=== PATIENT | female | born 1935 | race African-American/Black ===

== ENCOUNTER → 2016-09-22 | Outpatient (CLI) | payer MEDICARE ==
[~2016-09-22] MED LIST: AMLO10 PO; AMLO10TA2 PO; ASPI81 PO; ASPI81CH CHEW; COLA100C PO; GEMF600T PO; GLIP-146 PO; LISI-515 PO; LISI20TA3 PO; OMEP20TA PO; PRAV40TA PO; PRAV40TA2 PO
[2016-09-22 09:33] LABS: AUTOMATED NEUTROPHIL # 3.8 TH/MM3 (1.8-7.7); BASOPHIL # 0.1 TH/MM3 (0-0.2); EOSINOPHIL # 1.1 TH/MM3 (0-0.4); EOSINOPHIL % 15.2 % (0.0-4.0); HEMATOCRIT 28.4 % (35.0-46.0); HEMO FLAGS DIFF FINAL; LYMPH % 26.8 % (9.0-44.0); MEAN CELL VOLUME 79.2 FL (80.0-100.0); MEAN CORPUSCULAR HEMOGLOBIN 25.6 PG (27.0-34.0); MEAN CORPUSCULAR HGB CONC 32.3 % (32.0-36.0); MONO % 6.4 % (0.0-8.0); NEUT % 50.6 % (16.0-70.0); PLATELET COUNT 195 TH/MM3 (150-450); RED BLOOD COUNT 3.59 MIL/MM3 (4.00-5.30); WHITE BLOOD COUNT 7.5 TH/MM3 (4.0-11.0)
[2016-09-22 09:36] LABS: BLOOD, URINE NEG (NEG); GLUCOSE,URINE NEG (NEG); HYALINE CAST, URINE 1 /lpf (RARE); KETONE, URINE NEG (NEG); MUCUS URINE FEW /lpf (OCC); NITRITE,URINE NEG (NEG); URINE COLOR LIGHT-YELLOW (YELLW/STRAW)
[2016-09-22 09:38] LABS: SQUAMOUS EPITHELIAL CELL URINE <1 /hpf (0-5)
[2016-09-22 10:04] LABS: ALKALINE PHOSPHATASE 70 U/L (45-117); ALT (GPT) 15 U/L (10-53); ANION GAP 7 MEQ/L (5-15); AST (GOT) 14 U/L (15-37); BICARBONATE 25.9 MEQ/L (21.0-32.0); BLOOD UREA NITROGEN 31 MG/DL (7-18); CHLORIDE 106 MEQ/L (98-107); GLOMERULAR FILTRATION RATE 36 ML/MIN (>89); GLUCOSE,FASTING 99 MG/DL (74-99); HDL CHOLESTEROL 71.6 MG/DL (40.0-60.0); LDL CHOLESTEROL 147 MG/DL (0-99); POTASSIUM 4.5 MEQ/L (3.5-5.1); SODIUM (NA) 139 MEQ/L (136-145); TOTAL BILIRUBIN ADULT 0.3 MG/DL (0.2-1.0)
[2016-09-22 10:06] LABS: CREATININE RANDOM URINE 68 MG/DL (27-300)
[2016-09-22 10:16] LABS: MICRO ALBUMIN RANDOM URINE RAW LESS THAN 5.0 MG/L (0.0-30.0); MICROALBUMIN/CREAT RATIO RAND 7 MG/G CRE (0-30)
[2016-09-22 14:26] LABS: HEMOGLOBIN A1b 0.5 %; HEMOGLOBIN F 0.9 %; HEMOGLOBIN LA1C 1.5 %; HEMOGLOBIN P3 3.7 %
== END ==
LOC: CLAB 09:08
PROVIDERS: ATTEND General Practice
DX: E11.9 Type 2 diabetes mellitus without complications (principal); E78.00 Pure hypercholesterolemia, unspecified
CPT/HCPCS: 36415; 80053; 80061; 81001; 82043; 83036; 85025

== ENCOUNTER 2016-10-19 18:18 | Emergency (ER) | payer MEDICARE, MEDICAID ==
[~2016-10-19 18:18] MED LIST changes: -AMLO10TA2 PO; -ASPI81CH CHEW; -COLA100C PO; -LISI-515 PO; -LISI20TA3 PO; -PRAV40TA2 PO
[2016-10-19 18:20] VITALS: BP 182/83; PULSE 101; RESP 14; TEMP 99.3; O2SAT 98
[2016-10-19] MEDS ORDERED: AMLO10TA2 PO (19:25)
[2016-10-19] MEDS ORDERED: ASPI81CH CHEW (19:25)
[2016-10-19] MEDS ORDERED: PRAV40TA2 PO (19:25)
[2016-10-19] MEDS ORDERED: LISI-515 PO (19:25)
[2016-10-19] MEDS ORDERED: LISI20TA3 PO (19:25)
[2016-10-19] MEDS ORDERED: SOD PHOSPHATE/SOD BIPHOSPHATE (ADULT) ENEMA 133ML RECTAL ONE (19:45)
--- NOTE | 2016-10-19 19:47 | PD ---
HPI Chief Complaint: GI Complaint Time Seen by Provider: 19:30 Travel History International Travel<30 days: No Contact w/Intl Traveler<30days: No Traveled to known affect area: No History of Present Illness HPI This is a 81-year-old female presents for evaluation of constipation. She reports that she was started on Lortab 5 days ago for pain associated with an ingrown toenail. She reports that for the past 2 days she's been constipated. Her last bowel movement was October 17. She reports rectal pain associated with attempting to pass a bowel movement. She took some Colace yesterday which did not seem to help. She denies abdominal pain, nausea or vomiting, fevers or chills, dysuria. She has no other complaints. PFSH Past Medical History Arthritis: Yes (LEFT KNEE) Blood Disorders: No Cancer: No Cardiac Catheterization: Yes (2009) Cardiovascular Problems: Yes High Cholesterol: Yes Chemotherapy: No Diabetes: Yes Diminished Hearing: No Endocrine: Yes GERD: No Genitourinary: No Hiatal Hernia: No Hypertension: Yes Immune Disorder: No Musculoskeletal: No Neurologic: No Psychiatric: No Reproductive: No Respiratory: No Radiation Therapy: No Thyroid Disease: No Ulcer: No Menopausal: Yes : 8 Para: 8 Past Surgical History Surgical History: No Previous Surgery Cardiac Surgery: Yes (stents) Section: Yes (X1) Coronary Stent: Yes (2009 X 3 ) Other Surgery: Yes (ingrown toenail) Social History Alcohol Use: No Tobacco Use: No Substance Use: No Allergies-Medications (Allergen,Severity, Reaction): Coded Allergies: Darvon (Verified Allergy, Severe, UNKNOWN, 10/19/16) Reported Meds & Prescriptions Reported Meds & Active Scripts Active Colace (Docusate Sodium) 100 Mg Capsule 1 Tab PO BID 10 Days Reported Aspirin 81 Mg Chew 81 Mg CHEW DAILY Amlodipine (Amlodipine Besylate) 10 Mg Tab 10 Mg PO DAILY Pravastatin 40 Mg Tab 40 Mg PO DAILY Lisinopril-Hctz 20-25 Mg Tab 1 Tab PO DAILY Review of Systems Except as stated in HPI: all other systems reviewed are Neg Physical Exam Narrative GENERAL: Well-developed well-nourished female in no acute distress SKIN: Warm and dry. HEAD: Atraumatic. Normocephalic. EYES: Pupils equal and round. No scleral icterus. No injection or drainage. ENT: No nasal bleeding or discharge. Mucous membranes pink and moist. NECK: Trachea midline. No JVD. CARDIOVASCULAR: Regular rate and rhythm. No murmur appreciated. RESPIRATORY: No accessory muscle use. Clear to auscultation. Breath sounds equal bilaterally. GASTROINTESTINAL: Abdomen soft, non-tender, nondistended. Hepatic and splenic margins not palpable. Normoactive bowel sounds in all 4 quadrants. Rectal examination: There is a large fecal impaction noted in the rectal vault. There is no evidence of internal or external hemorrhoid, no anal fissure. MUSCULOSKELETAL: No obvious deformities. No clubbing. No cyanosis. No edema. NEUROLOGICAL: Awake and alert. No obvious cranial nerve deficits. Motor grossly within normal limits. Normal speech. Data Data Last Documented VS Vital Signs Date Time Temp Pulse Resp B/P Pulse Ox O2 Delivery O2 Flow Rate FiO2 10/19/16 18:20 99.3 101 14 182/83 98 Orders Fleets Enema (Adult) (Fleets Enema (Adul (10/19/16 19:45) MDM Medical Decision Making Medical Screen Exam Complete: Yes Emergency Medical Condition: Yes Medical Record Reviewed: Yes Differential Diagnosis Opioid-induced constipation, fecal impaction, bowel obstruction, ileus Narrative Course This is a 81-year-old female who was started on Lortab 5 days ago. She presents with constipation for 2 days. On examination she has a large fecal impaction. Her abdomen is soft and nontender and she has normoactive bowel sounds. I don't suspect bowel obstruction. I suspect opioid-induced constipation, fecal impaction. After verbal consent was obtained I attempted manual disimpaction of her large fecal impaction and was able to remove a significant amount of stool. She continues to have rectal discomfort and therefore a fleets enema will be initiated. Immediately after the enema the patient had a large bowel movement. Her symptoms have resolved and she feels significantly improved. The patient agrees that she will discontinue the Lortab. She'll be discharged with a short course of Colace. Diagnosis Primary Impression: Constipation Qualified Code: K59.00 - Constipation, unspecified constipation type Additional Impression: Fecal impaction in rectum Additional Instructions: Stay well hydrated. High-fiber diet. Colace. Discontinue Lortab. Follow-up with primary care physician as needed. Return for any acutely new or worsening symptoms. Med/Other Pt SpecificInfo: Prescription(s) given Scripts Docusate Sodium (Colace)100 Mg Capsule1 Tab PO BID 10 Days Prov:Aisha Mclaughlin MD 10/19/16 Disposition: 01 DISCHARGE HOME Condition: Stable Charanjit Gordon Oct 19, 2016 19:47
[2016-10-19] MEDS ORDERED: COLA100C PO (20:10)
== END 2016-10-19 20:19 | disposition home or self-care (01) ==
LOC: NEPE 18:18
DX: K59.00 Constipation, unspecified (principal); K56.41 Fecal impaction; L60.0 Ingrowing nail; M17.12 Unilateral primary osteoarthritis, left knee; E78.00 Pure hypercholesterolemia, unspecified; E11.9 Type 2 diabetes mellitus without complications; I10 Essential (primary) hypertension; Z79.82 Long term (current) use of aspirin; Z79.899 Other long term (current) drug therapy
CPT/HCPCS: 99283

== ENCOUNTER 2017-01-30 20:19 | Emergency (ER) | payer MEDICARE, MEDICAID ==
[~2017-01-30 20:19] MED LIST changes: -AMLO10 PO; +AMLO10TA2 PO; -ASPI81 PO; +ASPI81CH CHEW; +COLA100C PO; -GEMF600T PO; -GLIP-146 PO; +LISI20TA3 PO; -OMEP20TA PO; -PRAV40TA PO; +PRAV40TA2 PO
[2017-01-30 20:20] VITALS: BP 216/98; PULSE 102; RESP 16; TEMP 98.6; O2SAT 98
[2017-01-30 22:04] LABS: BASOPHIL % 0.6 % (0.0-2.0); EOSINOPHIL % 11.4 % (0.0-4.0); HEMATOCRIT 29.7 % (35.0-46.0); HEMO FLAGS DIFF FINAL; LYMPH % 21.6 % (9.0-44.0); LYMPHOCYTE # 1.8 TH/MM3 (1.0-4.8); MEAN CELL VOLUME 79.9 FL (80.0-100.0); MEAN CORPUSCULAR HEMOGLOBIN 26.5 PG (27.0-34.0); MEAN CORPUSCULAR HGB CONC 33.1 % (32.0-36.0); MONO % 7.4 % (0.0-8.0); PLATELET COUNT 192 TH/MM3 (150-450); RED BLOOD COUNT 3.71 MIL/MM3 (4.00-5.30); WHITE BLOOD COUNT 8.5 TH/MM3 (4.0-11.0)
[2017-01-30 22:06] LABS: BLOOD, URINE NEG (NEG); GLUCOSE,URINE NEG (NEG); KETONE, URINE NEG (NEG); NITRITE,URINE NEG (NEG); URINE COLOR COLORLESS (YELLW/STRAW)
[2017-01-30 22:07] LABS: COMMENT (UR) CULT NOT INDICATED; CULTURE IF INDICATED CULT NOT INDICATED
[2017-01-30 22:16] LABS: ALT (GPT) 12 U/L (10-53); ANION GAP 11 MEQ/L (5-15); AST (GOT) 12 U/L (15-37); BICARBONATE 22.4 MEQ/L (21.0-32.0); BLOOD UREA NITROGEN 19 MG/DL (7-18); CHLORIDE 106 MEQ/L (98-107); GLOMERULAR FILTRATION RATE 38 ML/MIN (>89); SODIUM (NA) 139 MEQ/L (136-145)
[2017-01-30 22:19] LABS: ALKALINE PHOSPHATASE 70 U/L (45-117); TOTAL BILIRUBIN ADULT 0.3 MG/DL (0.2-1.0)
[2017-01-30 22:34] VITALS: BP 203/94; PULSE 84; RESP 16; TEMP 97.9; O2SAT 99
[2017-01-31] MEDS ORDERED: LISINOPRIL 20 MG TAB PO ONE (00:15)
[2017-01-31] MEDS ORDERED: DICYCLOMINE HCL 10 MG CAP PO ONE (00:15)
[2017-01-31] MEDS ORDERED: HYDROCHLOROTHIAZIDE 25 MG TAB PO ONE (00:15)
[2017-01-31 00:20] VITALS: BP 174/82; PULSE 84; RESP 18; O2SAT 100
[2017-01-31] MEDS ORDERED: DICY10 PO (00:28)
--- NOTE | 2017-01-31 00:29 | PD ---
HPI . Diffuse abdominal pain Chief Complaint: Abdominal Pain Time Seen by Provider: 00:14 Travel History International Travel<30 days: No Contact w/Intl Traveler<30days: No Traveled to known affect area: No History of Present Illness HPI This patient presents with the chief complaint of diffuse abdominal pain associated with loose stools. Onset was 3 days ago. Her had just . She states that they buried him 2 days ago. In addition to the abdominal pain and diarrhea, she states that she has a lot of gas. Symptoms are exacerbated by eating. He she denies any associated nausea, vomiting or fever. She denies any associated urinary tract symptoms. Her pain is crampy and is rated 8/10. The patient reports that she did not take her antihypertensives today because she was coming here. PFSH Past Medical History Arthritis: Yes (LEFT KNEE) Blood Disorders: No Cancer: No Cardiac Catheterization: Yes (2009) Cardiovascular Problems: Yes High Cholesterol: Yes Chemotherapy: No Diabetes: Yes Patient Takes Glucophage: No Diminished Hearing: No Endocrine: Yes GERD: No Genitourinary: No Hiatal Hernia: No Hypertension: Yes Immune Disorder: No Musculoskeletal: No Neurologic: No Psychiatric: No Reproductive: No Respiratory: No Radiation Therapy: No Thyroid Disease: No Ulcer: No Tetanus Vaccination: Unknown Influenza Vaccination: No ?: Not Menopausal: Yes : 8 Para: 8 Past Surgical History Cardiac Surgery: Yes (stents) Section: Yes (X1) Coronary Stent: Yes (X 3 ) Other Surgery: Yes (ingrown toenail) Social History Alcohol Use: No Tobacco Use: No Substance Use: No Allergies-Medications (Allergen,Severity, Reaction): Coded Allergies: propoxyphene (Unverified Allergy, Severe, UNKNOWN, 01/30/17) Reported Meds & Prescriptions Reported Meds & Active Scripts Active Reported Aspirin 81 Mg Chew 81 Mg CHEW DAILY Amlodipine (Amlodipine Besylate) 10 Mg Tab 10 Mg PO DAILY Pravastatin 40 Mg Tab 40 Mg PO DAILY Lisinopril-Hctz 20-25 Mg Tab 1 Tab PO DAILY Review of Systems Except as stated in HPI: all other systems reviewed are Neg General / Constitutional: No: Fever, Chills Cardiovascular: No: Chest Pain or Discomfort Respiratory: No: Shortness of Breath Gastrointestinal: Positive: Diarrhea, Abdominal Pain, No: Nausea, Vomiting Genitourinary: No: Urgency, Frequency, Dysuria Physical Exam Narrative GENERAL: This patient looks comfortable. SKIN: warm/dry. HEAD: Normocephalic. Atraumatic. EYES: Pupils equal and round. No scleral icterus. No injection or drainage. ENT: No nasal bleeding or discharge. Mucous membranes pink and moist. NECK: Trachea midline. Full range of motion without pain.. CARDIOVASCULAR: Regular rate and rhythm. Heart sounds normal. RESPIRATORY: No accessory muscle use. Clear to auscultation. Breath sounds equal bilaterally. GASTROINTESTINAL: Abdomen soft. Nontender. Bowel sounds present. Nondistended. MUSCULOSKELETAL: No obvious deformities. NEUROLOGICAL: Awake and alert. No obvious cranial nerve deficits. Motor grossly within normal limits. Normal speech. PSYCHIATRIC: Appropriate mood and affect; insight and judgment normal. Data Data Last Documented VS Vital Signs Date Time Temp Pulse Resp B/P (MAP) Pulse Ox O2 Delivery O2 Flow Rate FiO2 01/31/17 00:20 84 18 174/82 (112) 100 Room Air 01/30/17 22:34 97.9 Orders Orders Complete Blood Count With Diff (01/30/17 20:59) Comprehensive Metabolic Panel (01/30/17 20:59) Urinalysis - C+S If Indicated (01/30/17 20:59) Lipase (01/30/17 20:59) Dicyclomine (Bentyl) (01/31/17 00:15) Hydrochlorothiazide (Hydrodiuril) (01/31/17 00:15) Lisinopril (Prinivil) (01/31/17 00:15) Amlodipine (Norvasc) (01/31/17 00:15) Labs Laboratory Tests Test 01/30/17 21:10 01/30/17 21:46 Urine Color COLORLESS Urine Turbidity CLEAR Urine pH 5.0 Urine Specific [place] 1.003 Urine Protein NEG mg/dL Urine Glucose (UA) NEG mg/dL Urine Ketones NEG mg/dL Urine Occult Blood NEG Urine Nitrite NEG Urine Bilirubin NEG Urine Urobilinogen LESS THAN 2.0 MG/DL Urine Leukocyte Esterase NEG Microscopic Urinalysis Comment CULT NOT INDICATED White Blood Count 8.5 TH/MM3 Red Blood Count 3.71 MIL/MM3 Hemoglobin 9.8 GM/DL Hematocrit 29.7 % Mean Corpuscular Volume 79.9 FL Mean Corpuscular Hemoglobin 26.5 PG Mean Corpuscular Hemoglobin Concent 33.1 % Red Cell Distribution Width 16.0 % Platelet Count 192 TH/MM3 Mean Platelet Volume 8.9 FL Neutrophils (%) (Auto) 59.0 % Lymphocytes (%) (Auto) 21.6 % Monocytes (%) (Auto) 7.4 % Eosinophils (%) (Auto) 11.4 % Basophils (%) (Auto) 0.6 % Neutrophils # (Auto) 5.0 TH/MM3 Lymphocytes # (Auto) 1.8 TH/MM3 Monocytes # (Auto) 0.6 TH/MM3 Eosinophils # (Auto) 1.0 TH/MM3 Basophils # (Auto) 0.0 TH/MM3 CBC Comment DIFF FINAL Differential Comment Blood Urea Nitrogen 19 MG/DL Creatinine 1.57 MG/DL Random Glucose 88 MG/DL Total Protein 7.8 GM/DL Albumin 3.8 GM/DL Calcium Level 9.4 MG/DL Alkaline Phosphatase 70 U/L Aspartate Amino Transf (AST/SGOT) 12 U/L Alanine Aminotransferase (ALT/SGPT) 12 U/L Total Bilirubin 0.3 MG/DL Sodium Level 139 MEQ/L Potassium Level 4.0 MEQ/L Chloride Level 106 MEQ/L Carbon Dioxide Level 22.4 MEQ/L Anion Gap 11 MEQ/L Estimat Glomerular Filtration Rate 38 ML/MIN Lipase 157 U/L MDM Medical Decision Making Medical Screen Exam Complete: Yes Emergency Medical Condition: Yes Differential Diagnosis Differential diagnosis of abdominal pain includes but is not limited to gastritis, pancreatitis, hepatitis, gastroenteritis, gallbladder disease, constipation, urinary retention, UTI, peptic ulcer disease, diverticulitis or appendicitis Narrative Course This patient presents with diffuse abdominal pain associated with loose stools. She has a benign abdominal exam. Her had just when she had the onset of her symptoms. I have given her her usual antihypertensives. Diagnosis Primary Impression: Abdominal pain Qualified Codes: R10.84 - Generalized abdominal pain Additional Impressions: Diarrhea Qualified Codes: R19.7 - Diarrhea, unspecified Hypertension Qualified Codes: I10 - Essential (primary) hypertension Patient Instructions: Abdominal Pain (ED), Acute Diarrhea (ED), General Instructions Med/Other Pt SpecificInfo: Prescription(s) given Scripts Dicyclomine (Bentyl) 10 Mg Cap 20 MG PO QID for Bowel Management, #10 CAP 0 Refills Prov: Jelena Marrero MD 01/31/17 Disposition: 01 DISCHARGE HOME Condition: Stable Jelena Marrero MD Jan 31, 2017 00:29
== END 2017-01-31 01:01 | disposition home or self-care (01) ==
LOC: NEPE 20:19
DX: R10.84 Generalized abdominal pain (principal); R19.7 Diarrhea, unspecified; I10 Essential (primary) hypertension; M17.12 Unilateral primary osteoarthritis, left knee; E78.00 Pure hypercholesterolemia, unspecified; E11.9 Type 2 diabetes mellitus without complications; Z79.82 Long term (current) use of aspirin; Z79.899 Other long term (current) drug therapy; Z88.8 Allergy status to other drugs, medicaments and biological substances
CPT/HCPCS: 80053; 81001; 83690; 85025; 99283

== ENCOUNTER → 2017-03-30 | Outpatient (CLI) | payer MEDICARE, MEDICAID ==
[~2017-03-30] MED LIST changes: +ASPI-516 CHEW; -ASPI81CH CHEW; -COLA100C PO; +DICY10 PO
[2017-03-30 10:06] LABS: BLOOD, URINE NEG (NEG); GLUCOSE,URINE NEG (NEG); HYALINE CAST, URINE 1 /lpf (RARE); KETONE, URINE NEG (NEG); MUCUS URINE FEW /lpf (OCC); NITRITE,URINE NEG (NEG); SQUAMOUS EPITHELIAL CELL URINE 1 /hpf (0-5); URINE COLOR YELLOW (YELLW/STRAW)
[2017-03-30 10:13] LABS: AUTOMATED NEUTROPHIL # 3.6 TH/MM3 (1.8-7.7); BASOPHIL # 0.1 TH/MM3 (0-0.2); BASOPHIL % 0.8 % (0.0-2.0); EOSINOPHIL # 1.1 TH/MM3 (0-0.4); EOSINOPHIL % 15.6 % (0.0-4.0); HEMATOCRIT 29.9 % (35.0-46.0); HEMO FLAGS DIFF FINAL; LYMPH % 27.6 % (9.0-44.0); MEAN CELL VOLUME 80.8 FL (80.0-100.0); MEAN CORPUSCULAR HEMOGLOBIN 26.9 PG (27.0-34.0); MEAN CORPUSCULAR HGB CONC 33.3 % (32.0-36.0); MONO % 6.9 % (0.0-8.0); NEUT % 49.1 % (16.0-70.0); PLATELET COUNT 195 TH/MM3 (150-450); WHITE BLOOD COUNT 7.3 TH/MM3 (4.0-11.0)
[2017-03-30 10:38] LABS: ANION GAP 9 MEQ/L (5-15); AST (GOT) 10 U/L (15-37); BLOOD UREA NITROGEN 25 MG/DL (7-18); CHLORIDE 103 MEQ/L (98-107); GLOMERULAR FILTRATION RATE 39 ML/MIN (>89); GLUCOSE,FASTING 100 MG/DL (74-99); POTASSIUM 4.1 MEQ/L (3.5-5.1); SODIUM (NA) 137 MEQ/L (136-145)
[2017-03-30 10:39] LABS: ALT (GPT) 10 U/L (10-53)
[2017-03-30 10:43] LABS: MICRO ALBUMIN RANDOM URINE RAW 6.7 MG/L (0.0-30.0)
[2017-03-30 10:48] LABS: ALKALINE PHOSPHATASE 65 U/L (45-117); HDL CHOLESTEROL 101.9 MG/DL (40.0-60.0); LDL CHOLESTEROL 135 MG/DL (0-99); TOTAL BILIRUBIN ADULT 0.3 MG/DL (0.2-1.0)
[2017-03-30 16:12] LABS: HEMOGLOBIN A1a 2.3 %; HEMOGLOBIN A1b 0.5 %; HEMOGLOBIN Ao 52.1 %; HEMOGLOBIN F 0.9 %; HEMOGLOBIN LA1C 1.4 %; HEMOGLOBIN P3 2.6 %
== END ==
LOC: CLAB 09:06
PROVIDERS: ATTEND General Practice
DX: E78.00 Pure hypercholesterolemia, unspecified (principal); E11.9 Type 2 diabetes mellitus without complications; I10 Essential (primary) hypertension
CPT/HCPCS: 36415; 80053; 80061; 81001; 82043; 83036; 84443; 85025

== ENCOUNTER → 2017-07-03 | Outpatient (CLI) | payer MEDICAID, MEDICARE ==
[2017-07-03 09:50] LABS: AUTOMATED NEUTROPHIL # 3.1 TH/MM3 (1.8-7.7); BASOPHIL % 0.4 % (0.0-2.0); EOSINOPHIL # 1.3 TH/MM3 (0-0.4); EOSINOPHIL % 16.9 % (0.0-4.0); HEMOGLOBIN 9.9 GM/DL (11.6-15.3); LYMPHOCYTE # 2.4 TH/MM3 (1.0-4.8); MEAN CELL VOLUME 78.8 FL (80.0-100.0); MEAN CORPUSCULAR HEMOGLOBIN 26.8 PG (27.0-34.0); MEAN PLATELET VOLUME 8.6 FL (7.0-11.0); MONO % 8.7 % (0.0-8.0); MONOCYTE # 0.6 TH/MM3 (0-0.9); PLATELET COUNT 214 TH/MM3 (150-450); RED BLOOD COUNT 3.68 MIL/MM3 (4.00-5.30); RED CELL DISTRIBUTION WIDTH 15.9 % (11.6-17.2); WHITE BLOOD COUNT 7.4 TH/MM3 (4.0-11.0)
[2017-07-03 09:58] LABS: BACTERIA, URINE RARE /hpf; BILIRUBIN, URINE NEG (NEG); BLOOD, URINE NEG (NEG); GLUCOSE,URINE NEG (NEG); KETONE, URINE NEG (NEG); NITRITE,URINE NEG (NEG); PH, URINE 6.5 (5.0-8.5); URINE COLOR LIGHT-YELLOW (YELLW/STRAW); URINE LEUKOCYTE ESTERASE NEG (NEG)
[2017-07-03 10:14] LABS: ALBUMIN 3.7 GM/DL (3.4-5.0); AST (GOT) 12 U/L (15-37); BLOOD UREA NITROGEN 27 MG/DL (7-18); CALCIUM 9.1 MG/DL (8.5-10.1); CHLORIDE 105 MEQ/L (98-107); CREATININE 1.62 MG/DL (0.50-1.00); GLOMERULAR FILTRATION RATE 37 ML/MIN (>89); GLUCOSE,FASTING 85 MG/DL (74-99); SODIUM (NA) 139 MEQ/L (136-145)
[2017-07-03 10:16] LABS: ALT (GPT) 11 U/L (10-53)
[2017-07-03 10:18] LABS: ALKALINE PHOSPHATASE 76 U/L (45-117); TOTAL BILIRUBIN ADULT 0.3 MG/DL (0.2-1.0); TOTAL PROTEIN 7.5 GM/DL (6.4-8.2)
[2017-07-03 16:39] LABS: HEMOGLOBIN A1C 6.2 % (4.3-6.0)
== END ==
LOC: CLAB 08:58
DX: E11.9 Type 2 diabetes mellitus without complications (principal)
CPT/HCPCS: 36415; 80053; 81001; 82043; 83036; 85025